=== PATIENT | male | born 1950 | race Caucasian/White ===

== ENCOUNTER → 2017-01-07 | Outpatient (CLI) | payer SELFPAY | END | disposition home or self-care (01) | LOC: RAD 09:42 | DX: E04.1 Nontoxic single thyroid nodule (principal) | CPT/HCPCS: 76536 ==

== ENCOUNTER → 2017-04-20 | Outpatient (CLI) | payer OTHER ==
[~2017-04-20] MED LIST: EMERGEN-C 1,01000 MG PO; LISINOPRIL10 MG PO; SINGULAIR10 MG PO; VITAMIN D31000 UNI2 PO; VITAMIN D32000 UNI1 PO
== END | disposition home or self-care (01) ==
LOC: CDC 12:40
DX: Z01.810 Encounter for preprocedural cardiovascular examination (principal); I10 Essential (primary) hypertension; C32.0 Malignant neoplasm of glottis
CPT/HCPCS: 93000

== ENCOUNTER 2017-04-26 11:46 | Day surgery (SDC) | payer OTHER ==
[~2017-04-26] VITALS: Ht 182.9 cm; Wt 88.9 kg
[2017-04-26 12:47] VITALS: BP 134/79
[2017-04-26] MEDS ORDERED: NORCO 5/3251 TABLET PO (14:05)
[2017-04-26 14:45] VITALS: BP 135/66
[2017-04-26 15:44] VITALS: BP 134/87
== END 2017-04-26 15:55 | disposition home or self-care (01) ==
LOC: SDC
PROC: 0DH63UZ Insertion of Feeding Device into Stomach, Percutaneous Approach (ICD-10-PCS; principal; 2017-04-26)
DX: C32.0 Malignant neoplasm of glottis (principal); I10 Essential (primary) hypertension; F17.200 Nicotine dependence, unspecified, uncomplicated; Z79.82 Long term (current) use of aspirin
CPT/HCPCS: J2405; J3010

== ENCOUNTER → 2017-10-01 | Outpatient (CLI) | payer OTHER ==
[~2017-10-01] MED LIST changes: +NORCO 5/3251 TABLET PO
== END | disposition home or self-care (01) ==
LOC: RAD 12:53
DX: K80.20 Calculus of gallbladder without cholecystitis without obstruction (principal); K76.89 Other specified diseases of liver; R93.5 Abnormal findings on diagnostic imaging of other abdominal regions, including retroperitoneum; C32.0 Malignant neoplasm of glottis
CPT/HCPCS: 76705

== ENCOUNTER → 2017-10-20 | Outpatient (CLI) | payer OTHER | END | disposition home or self-care (01) | LOC: CDC 10:03 | DX: Z01.810 Encounter for preprocedural cardiovascular examination (principal); C32.0 Malignant neoplasm of glottis | CPT/HCPCS: 93000 ==

== ENCOUNTER → 2017-10-20 | Outpatient (CLI) | payer OTHER ==
[~2017-10-20] VITALS: Ht 182.9 cm; Wt 79.4 kg
== END | disposition home or self-care (01) ==
LOC: AMB 11:11
PROC: 0DP64UZ Removal of Feeding Device from Stomach, Percutaneous Endoscopic Approach (ICD-10-PCS; principal; 2017-10-20)
DX: Z43.1 Encounter for attention to gastrostomy (principal); C32.0 Malignant neoplasm of glottis; F17.200 Nicotine dependence, unspecified, uncomplicated; I10 Essential (primary) hypertension
CPT/HCPCS: 43760; J2250